=== PATIENT | male | born 1945 | race Caucasian/White ===

== ENCOUNTER → 2017-01-21 | Outpatient (CLI) | payer OTHER, MEDICARE ==
[~2017-01-21] MED LIST: ASPCH81X PO; CINNAMON 500MG PO; LISI-725 PO; METF500T PO; OMEG10007 PO; OMEP20CA59 PO
[2017-01-21 15:47] LABS: SYNOVIAL FLUID APPEARANCE TURBID; SYNOVIAL FLUID COLOR YELLOW; SYNOVIAL FLUID MONONUC RELAT 14.2 %; SYNOVIAL FLUID POLYNUC RELAT 85.8 %
[2017-01-24 02:39] LABS: LYME DNA PCR CSF OR SYNOVIAL Detected (Not Detected); LYME DNA SOURCE Synovial Fluid
== END | disposition home or self-care (01) ==
LOC: C.LABBC 11:54
PROVIDERS: ATTEND Orthopaedic Surgery
DX: M25.462 Effusion, left knee (principal)

== ENCOUNTER 2019-05-03 20:33 | Inpatient (IN) ==
--- NOTE | 2019-05-03 21:44 | XRay Report ---
SINGLE VIEW CHEST CLINICAL HISTORY: Sepsis. FINDINGS: An AP, portable, upright chest radiograph is obtained. No prior studies are available for c omparison at the time of dictation. The examination is degraded by portable technique and patient rot ation. The heart is top normal for projection. The mediastinal contour is within normal limits. Ther e is mild elevation of the left hemidiaphragm with associated atelectasis. No airspace consolidation or large pleural effusion is identified. No pneumothorax is seen. The skeletal structures are osteope monet. The bony thorax is grossly intact. Thoracic scoliosis is noted. IMPRESSION: No acute cardiopulmonary abnormality. Electronically signed by: Yomi Tyson M.D. 05/03/2019 9:43 PM
[2019-05-03 22:01] LABS: Basophils # (auto) 0.01 K/uL (0-0.2); Basophils % (auto) 0.1 %; Hematocrit (blood only) 38.9 % (42-52); Hemoglobin 13.4 g/dL (14.0-18.0); Immature Granulocytes # (auto) 0.02 K/uL (0.00-0.02); Immature Granulocytes % (auto) 0.2 %; Lymphocytes # (auto) 0.69 K/uL (1.2-3.4); Lymphocytes % (auto) 7.9 %; Mean Corpuscular Hgb Conc 34.4 g/dL (32-36); Mean Corpuscular Volume 87.8 fL (80-100); Mean Platelet Volume 9.6 fL (7.4-10.4); Monocytes % (auto) 3.4 %; Neutrophils # (auto) 7.68 K/uL (1.4-6.5); Neutrophils % (auto) 88.4 %; Platelet Count 144 K/uL (130-400); RDW Coefficient of Variation 13.3 % (11.5-14.5); RDW Standard Deviation 43.2 fL (36.4-46.3); Red Blood Count 4.43 M/uL (4.7-6.1)
[2019-05-03 22:11] LABS: Partial Thromboplastin Ratio 1.5; Partial Thromboplastin Time 41.7 Seconds (21.0-31.0); Prothrombin Time 10.7 Seconds (9.0-12.0)
[2019-05-03 22:17] LABS: Albumin Level 3.9 gm/dl (3.4-5.0); BUN Creatinine Ratio 11.8 (10-20); Est GFR (Non-African American) 47.4; Potassium 3.8 mmol/L (3.5-5.1)
[2019-05-03 22:20] LABS: Bilirubin,Total 1.2 mg/dl (0.2-1); Globulin 3.7 gm/dl (2.5-4.0); Total Protein 7.6 gm/dl (6.4-8.2)
[2019-05-03] MEDS ORDERED: IOVERSOL 100ml IV PRN (22:50)
--- NOTE | 2019-05-03 22:52 | CT Scan Report ---
CT SCAN OF THE BRAIN WITHOUT IV CONTRAST CLINICAL HISTORY: Change in mental status. COMPARISON STUDY: CT of the brain dated 02/23/2014. TECHNIQUE: Unenhanced axial CT scan of the brain is performed from the vertex to the skull base. A do se lowering technique was utilized adhering to the principles of ALARA. CT DOSE: 614.27 mGy.cm FINDINGS: Brain parenchyma: There are age-related involutional changes noting mild subcortical and periventric ular microangiopathic change. There is no hemorrhage, mass effect, or evidence of acute territorial i schemia by CT criteria. Gomes-white matter differentiation is preserved. No extra-axial fluid collecti on is seen. Ventricles, sulci, cisterns: Prominent secondary to involutional change. Intracranial vasculature: There is atherosclerotic calcification of the cavernous carotid and vertebr al arteries. Calvarium: Unremarkable. Sinuses and mastoids: The visualized paranasal sinuses are clear. The mastoid air cells are well pneu matized. Orbits: The bony orbits are grossly intact. IMPRESSION: There is no hemorrhage, mass effect, or evidence of acute territorial ischemia by CT faiza bey. Electronically signed by: Yomi Tyson M.D. 05/03/2019 10:50 PM
[2019-05-03 23:01] LABS: Appearance Urine Clear (Clear); Bacteria Urine Automated Negative (Negative); Bilirubin Urine Negative (Negative); Blood Urine Negative (Negative); Color Urine Yellow; Epithelial Cell Urine Auto >30 /lpf (0-5); Glucose Urine UA Negative (Negative); Ketones Urine 1+ (Negative); Leukocyte Esterase Urine Negative (Negative); Nitrite Urine Negative (Negative); Protein Urine Trace (Negative); RBC Urine Automated 0-4 /hpf (0-4); Specific Gravity Urine 1.022 (1.000-1.030); Urobilinogen Urine Negative (Negative)
--- NOTE | 2019-05-03 23:02 | CT Scan Report ---
CT SCAN OF THE ABDOMEN AND PELVIS WITH IV CONTRAST CLINICAL HISTORY: Nausea. Fever. COMPARISON STUDY: No priors. TECHNIQUE: Following the IV administration of 94 cc of Optiray 320, CT scan of the abdomen and pelvi s is performed from the lung bases to the proximal femora. Images are reviewed in the axial, sagittal , and coronal planes. IV contrast was administered without complication. A dose lowering technique wa s utilized adhering to the principles of ALARA. CT DOSE: 656.48 mGy.cm FINDINGS: Lung bases: The heart is normal in size and without pericardial effusion. There are coronary artery c alcifications. The lung bases are clear. There is a small hiatal hernia. Liver: The contrast-enhanced liver is normal in size, contour, and attenuation. There is no intrahepa tic biliary ductal dilatation. The hepatic veins and portal veins are patent. Gallbladder: Unremarkable. Spleen: Normal in size and attenuation. Pancreas: Unremarkable. Adrenal glands: Unremarkable. Kidneys: The contrast enhanced kidneys demonstrate cortical atrophy and are without hydronephrosis. T he kidneys enhance symmetrically. A 4.4 cm cyst is noted in the left kidney. There are tiny nonobstru cting left renal calculi. Abdominal vasculature: The abdominal aorta is normal in course and caliber noting moderate atheroscle rotic calcification. Bowel: There is mild colonic diverticulosis. There is a long segment of wall thickening identified in volving the cecum and ascending colon. There is associated pericolonic stranding and fluid. Mild wall thickening of the terminal ileum is likely related to inflammation of the adjacent cecum. There is n o bowel obstruction. The appendix is not clearly identified. Peritoneum: There is no intraperitoneal free air or abdominal ascites. There is a fat-containing umbi lical hernia. Lymphadenopathy: None. Pelvic viscera: The the prostate gland is enlarged and heterogeneous, noting median lobe hypertrophy. The bladder is decompressed. The bladder wall appears thickened and trabeculated suggesting chronic outlet obstruction. Skeletal structures: The skeletal structures are osteopenic. There is mild to moderate lumbosacral sp ondylosis and scoliosis. No lytic or blastic lesions are seen. IMPRESSION: 1. There is a long segment of wall thickening and edema identified involving the cecum and ascending colon. There is associated pericolonic inflammation and fluid. Although there are scattered diverticu la of the right colon, ileocecitis/right-sided colitis is favored over acute diverticulitis due to th e length of involvement. The appendix is not identified. The appearance is not typical for appendicit is. 2. No intraperitoneal free air is seen and there is no organized fluid collection to indicate abscess . 3. There is mild diverticulosis of left colon. The left colon is otherwise normal in appearance. 4. Additional findings as above. Electronically signed by: Yomi Tyson M.D. 05/03/2019 11:00 PM
[2019-05-03] MEDS ORDERED: metroNIDAZOLE 500 MG/100 ML BAG IV STA (23:07)
[2019-05-03] MEDS ORDERED: CIPROFLOXACIN 400 MG/200 ML BAG IV ONE (23:08)
[2019-05-03] MEDS ORDERED: LACTATED RINGER'S 1,000 ML IV ONE (23:24)
[2019-05-03 23:35] LABS: Magnesium 1.6 mg/dl (1.8-2.4)
--- NOTE | 2019-05-03 23:49 | History & Physical Report ---
Date of Service May 03, 2019 Assessment & Plan (1) Sepsis: Secondary to right-sided colitis Hypertension, slightly elevated Hyperlipidemia statin Rx DM2 on her medications, well-controlled as of recent outpatient hemoglobin A1c of 6.2 last March 2019 CRI, creatinine at baseline GMF Cultures IV Ceftriaxone, Flagyl IVF GI consult RE right-sided colitis ISS BG goal 1 40-1 80, may need basal insulin to attain goal DVT prophylaxis heparin subcu Full code History of Present Illness Chief Complaint: Dizziness Primary Care Provider: Namrata Rolon History obtained from patient and records. Medical history significant for hypertension, hyperlipidemia, DM 2 on oral medications, CRI baseline creatinine 1.4-1.5. Patient was working on his car yesterday when he felt dizzy, felt lightheaded. 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 At home, patient was still hot and nauseous. Patient denies chest pain, cough, S OB, abdominal pain, diarrhea, dysuria. At the ER, patient noted to be febrile. Abdomen was noted to be somewhat tender by ER provider. CT abdomen pelvis results as follows: 1. There is a long segment of wall thickening and edema identified involving the cecum and ascending colon. There is associated pericolonic inflammation and fluid. Although there are scattered diverticula of the right colon, ileocec itis/right-sided colitis is favored over acute diverticulitis due to the length of involvement. The appendix is not identified. The appearance is not typical for appendicitis. 2. No intraperitoneal free air is seen and there is no organized fluid collection to indicate abscess. 3. There is mild diverticulosis of left colon. The left colon is otherwise normal in appearance. IV Cipro and Flagyl given at the ER. 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 Allergies Allergy/AdvReac Type Severity Reaction Status Date / Time aluminum Allergy Unknown Unknown Verified 05/03/19 21:59 Home Medications Home Medications Medication Instructions Recorded Confirmed Type cinnamon bark [Cinnamon] 500 mg PO BID 05/03/19 05/03/19 History lisinopril 20 mg PO DAILY 05/03/19 05/03/19 History metformin 500 mg PO BID 05/03/19 05/03/19 History omeprazole 20 mg PO BID 05/03/19 05/03/19 History Past Med/Surg History Medical History No pertinent past medical history Surgical History No pertinent past surgical history Family History Other Family history non-contributory Social History Preferred Language: Guyanese Communication Ability: Effective 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 Current Living Situation: Spouse Other Information That Helps Us Care for You: No Feels Safe at Home: Yes Safety Concerns: Feels Safe At This Time Smoking Status: Never smoker Hx Alcohol Use: Yes Hx Substance Use: No Review of Systems Review of Systems: As per HPI, all 10 systems reviewed, all other ROS negative Physical Exam Physical Exam: GENERAL: Comfortable, pleasant, obese, no respiratory distress SKIN: Normal color, warm HEENT: Sparse hair, pink palpebral conjunctivae, no ptosis, dry buccal mucosa NECK : Supple, short, no tenderness CHEST : CTA, no tenderness HEART : RRR, no obvious murmurs ABDOMEN: Some distention, minimal central abdominal tenderness r EXTREMITIES : No LE swelling/tenderness, no other conspicuous deformities noted NEUROLOGIC : Coherent, no facial asymmetry, no other gross focality Results & Data Vital Signs (Past 12 Hours) Vital Signs Temp Pulse Pulse Resp BP BP Pulse Ox 05/03/19 21:46 100 H 16 143/93 H 97 05/03/19 21:11 37.3 C 05/03/19 20:36 39.3 C H 115 H 18 160/84 H 96 Laboratory Results Laboratory Results WBC 8.70 K/uL (4.8-10.8) 05/03/19 21:47 RBC 4.43 M/uL (4.7-6.1) L 05/03/19 21:47 Hgb 13.4 g/dL (14.0-18.0) L 05/03/19 21:47 Hct 38.9 % (42-52) L 05/03/19 21:47 MCV 87.8 fL (80-100) 05/03/19 21:47 MCH 30.2 pg (25-34) 05/03/19 21:47 MCHC 34.4 g/dL (32-36) 05/03/19 21:47 RDW Std Deviation 43.2 fL (36.4-46.3) 05/03/19 21:47 RDW Coeff of Dayanna 13.3 % (11.5-14.5) 05/03/19 21:47 Plt Count 144 K/uL (130-400) 05/03/19 21:47 MPV 9.6 fL (7.4-10.4) 05/03/19 21:47 Immature Gran % (Auto) 0.2 % 05/03/19 21:47 Neut % (Auto) 88.4 % 05/03/19 21:47 Lymph % (Auto) 7.9 % 05/03/19 21:47 [place] % (Auto) 3.4 % 05/03/19 21:47 Eos % (Auto) 0.0 % 05/03/19 21:47 Baso % (Auto) 0.1 % 05/03/19 21:47 Immature Gran # (Auto) 0.02 K/uL (0.00-0.02) 05/03/19 21:47 Neut # (Auto) 7.68 K/uL (1.4-6.5) H 05/03/19 21:47 Lymph # (Auto) 0.69 K/uL (1.2-3.4) L 05/03/19 21:47 [place] # (Auto) 0.30 K/uL (0.11-0.59) 05/03/19 21:47 Eos # (Auto) 0.00 K/uL (0-0.5) 05/03/19 21:47 Baso # (Auto) 0.01 K/uL (0-0.2) 05/03/19 21:47 PT 10.7 Seconds (9.0-12.0) 05/03/19 21:47 INR 1.0 (0.9-1.1) 05/03/19 21:47 APTT 41.7 Seconds (21.0-31.0) H 05/03/19 21:47 PTT Ratio 1.5 05/03/19 21:47 Sodium 135 mmol/L (136-145) L 05/03/19 21:47 Potassium 3.8 mmol/L (3.5-5.1) 05/03/19 21:47 Chloride 103 mmol/L (98-107) 05/03/19 21:47 Carbon Dioxide 22 mmol/L (21-32) 05/03/19 21:47 Anion Gap 9.0 (3-11) 05/03/19 21:47 BUN 17 mg/dl (7-18) 05/03/19 21:47 Creatinine 1.45 mg/dl (0.6-1.4) H 05/03/19 21:47 Est Cr Clr Drug Dosing 46.0 ml/min 05/03/19 21:47 Est GFR ( Amer) 55.0 05/03/19 21:47 Est GFR (Non-Af Amer) 47.4 05/03/19 21:47 BUN/Creatinine Ratio 11.8 (10-20) 05/03/19 21:47 Glucose 115 mg/dl (70-99) H 05/03/19 21:47 Lactate 1.3 mmol/L (0.4-2.0) 05/03/19 21:47 Calcium 9.0 mg/dl (8.5-10.1) 05/03/19 21:47 Magnesium 1.6 mg/dl (1.8-2.4) L 05/03/19 21:47 Total Bilirubin 1.2 mg/dl (0.2-1) H 05/03/19 21:47 AST 17 U/L (15-37) 05/03/19 21:47 ALT 19 U/L (12-78) 05/03/19 21:47 Alkaline Phosphatase 71 U/L (45-117) 05/03/19 21:47 Total Protein 7.6 gm/dl (6.4-8.2) 05/03/19 21:47 Albumin 3.9 gm/dl (3.4-5.0) 05/03/19 21:47 Globulin 3.7 gm/dl (2.5-4.0) 05/03/19 21:47 Albumin/Globulin Ratio 1.0 (0.9-2) 05/03/19 21:47 Urine Color Yellow 05/03/19 Unknown Urine Appearance Clear (Clear) 05/03/19 Unknown Urine pH 6.0 (4.5-7.5) 05/03/19 Unknown Ur Specific [place] 1.022 (1.000-1.030) 05/03/19 Unknown Urine Protein Trace (Negative) H 05/03/19 Unknown Urine Glucose (UA) Negative (Negative) 05/03/19 Unknown Urine Ketones 1+ (Negative) H 05/03/19 Unknown Urine Blood Negative (Negative) 05/03/19 Unknown Urine Nitrite Negative (Negative) 05/03/19 Unknown Urine Bilirubin Negative (Negative) 05/03/19 Unknown Urine Urobilinogen Negative (Negative) 05/03/19 Unknown Ur Leukocyte Esterase Negative (Negative) 05/03/19 Unknown Urine WBC (Auto) 1-5 /hpf (0-5) 05/03/19 Unknown Urine RBC (Auto) 0-4 /hpf (0-4) 05/03/19 Unknown U Hyaline Cast (Auto) 1-5 /lpf (0-5) 05/03/19 Unknown U Epithel Cells (Auto) >30 /lpf (0-5) H 05/03/19 Unknown Urine Bacteria (Auto) Negative (Negative) 05/03/[address] abdomen pelvis results as per HPI CT head: There is no hemorrhage, mass effect, or evidence of acute territorial ischemia by CT criteria. Chest x-ray: No acute cardiopulmonary abnormality.
[2019-05-04] MEDS ORDERED: GLUCOSE 40% GEL 15 GM TUBE PO PRN (01:34)
[2019-05-04] MEDS ORDERED: DEXTROSE 50% 50 ML SYRINGE IV PRN (01:34)
[2019-05-04] MEDS ORDERED: HYDROmorphone INJ 0.5 MG/0.5 ML SYR IV PRN (01:34)
[2019-05-04] MEDS ORDERED: PROMETHAZINE HCL 12.5 MG in SODIUM CHLORIDE 0.9% 50 ML IV PRN (01:34)
[2019-05-04] MEDS ORDERED: GLUCAGON FOR INJ 1 MG VIAL SQ PRN (01:34)
[2019-05-04] MEDS ORDERED: TRAMADOL HCL 50 MG TABLET PO PRN (01:34)
[2019-05-04] MEDS ORDERED: GLUCOSE 10 TABS/TUBE PO PRN (01:34)
[2019-05-04] MEDS ORDERED: CARBOHYDRATES FOR HYPOGLYCEMIA PO PRN (01:34)
[2019-05-04] MEDS ORDERED: ACETAMINOPHEN 325 MG TAB PO PRN (01:34)
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
[2019-05-04] MEDS: INSULIN ASPART 100 UNITS/ML 3 ML PEN SC SCH ×5 (01:43→20:34)
[2019-05-04] MEDS ORDERED: MAGNESIUM SULFATE / D5W 1 GM/100 ML BAG IV ONE (02:43)
[2019-05-04] MEDS: HEPARIN SOD 5,000 UNIT/0.5 ML VIAL SQ SCH ×3 (05:48→21:55)
[2019-05-04 06:57] LABS: Basophils # (auto) 0.02 K/uL (0-0.2); Basophils % (auto) 0.3 %; Eosinophils # (auto) 0.01 K/uL (0-0.5); Eosinophils % (auto) 0.1 %; Hemoglobin 12.8 g/dL (14.0-18.0); Immature Granulocytes # (auto) 0.02 K/uL (0.00-0.02); Immature Granulocytes % (auto) 0.3 %; Lymphocytes # (auto) 1.27 K/uL (1.2-3.4); Lymphocytes % (auto) 17.9 %; Mean Corpuscular Hgb Conc 34.6 g/dL (32-36); Mean Corpuscular Volume 87.3 fL (80-100); Mean Platelet Volume 9.8 fL (7.4-10.4); Monocytes % (auto) 4.2 %; Neutrophils # (auto) 5.49 K/uL (1.4-6.5); Neutrophils % (auto) 77.2 %; Platelet Count 139 K/uL (130-400); RDW Coefficient of Variation 13.5 % (11.5-14.5); RDW Standard Deviation 43.1 fL (36.4-46.3); Red Blood Count 4.24 M/uL (4.7-6.1); White Blood Count 7.11 K/uL (4.8-10.8)
[2019-05-04 07:27] LABS: BUN Creatinine Ratio 11.3 (10-20); Calcium 8.5 mg/dl (8.5-10.1); Creatinine Clr Calc Pharmacy 48.5 ml/min; Est GFR (African American) 56.9; Est GFR (Non-African American) 49.1; Magnesium 1.9 mg/dl (1.8-2.4); Potassium 3.6 mmol/L (3.5-5.1)
[2019-05-04] MEDS: LISINOPRIL 20 MG TAB PO SCH (07:44)
[2019-05-04] MEDS: cefTRIAXone SODIUM 2,000 MG in DEXTROSE 5% 50 ML IV SCH (07:44)
[2019-05-04] MEDS: PANTOprazole 40 MG TAB PO SCH ×2 (07:45→20:25)
[2019-05-04] MEDS: metroNIDAZOLE 500 MG/100 ML BAG IV SCH ×3 (08:23→23:50)
[2019-05-04] MEDS ORDERED: cefTRIAXone SODIUM 1,000 MG in DEXTROSE 5% 50 ML IV SCH (09:00)
--- NOTE | 2019-05-04 09:24 | Gastrointestinal Consultation ---
Date of Consultation May 04, 2019 Assessment & Plan (1) Abnormal CT of the abdomen: 73 year old male who presented through the ED with nausea, lightheadedness, dehydration, CT w/ long segment of wall thickening and edema identified involving the cecum and ascending colon. He denies abdominal pain, nausea, vomiting or change in bowel habits. Would continue conservative management at this time. Would recommend to send a stool culture and a c.diff. Would continue IV fluids for hydration. Continue IV Cipro/Flagyl for now. Anti-emetics PRN. Analgesia PRN. Would recommend he keep outpatient colonoscopy as scheduled for 05/25/19. Present on Admission?: Yes Supervising Physician Co-Signing Physician Notes I have personally seen and examined the patient with HORACE Duggan. Her note reflects my exam and findings. I agree with her impression and plan. Feeling well today and wanting to go home. Agree with out patient colonoscopy. Luis A Calderon M.D. History of Present Illness Reason for Consultation: abnormal CT of abd, ileitis Requesting Physician: Mathieu Attending Physician: Octavio Murdock MD History of Present Illness 73 year old male with history of T2DM, dyslipidemia, HTN, Raynauds, GERD and others below who presented to the ED w/ nausea, lightheadedness and dehydration - GI asked to evaluate for thickening on CT scan. Pt was seen and evaluated, chart reviewed. He notes that overall he is feeling well w/ fluids. Denies abdominal pain. No nausea, vomiting. Bowels move daily. No black or bloody stools. No history of chronic diarrhea. Denies fever, chills, CP, SOB. He is planned for an OP Colonoscopy 05/25/[address] CA screening[address] CT ABD/Pelvis: There is a long segment of wall thickening and edema identified involving the cecum and ascending colon. There is associated pericolonic inflammation and fluid. Although there are scattered diverticula of the right colon, ileocecitis/right-sided colitis is favored over acute diverticulitis due to the length of involvement. The appendix is not identified. The appearance is not typical for appendicitis. No intraperitoneal free air is seen and there is no organized fluid collection to indicate abscess.There is mild diverticulosis of left colon. The left colon is otherwise normal in appearance. Additional findings as above. Allergies Allergy/AdvReac Type Severity Reaction Status Date / Time aluminum Allergy Unknown Unknown Verified 05/03/19 21:59 Home Medications Home Medications Medication Instructions Recorded Confirmed Type cinnamon bark [Cinnamon] 500 mg PO BID 05/03/19 05/03/19 History lisinopril 20 mg PO DAILY 05/03/19 05/03/19 History metformin 500 mg PO BID 05/03/19 05/03/19 History omeprazole 20 mg PO BID 05/03/19 05/03/19 History Patient History Medical History No pertinent past medical history Surgical History No pertinent past surgical history Family History Other Family history non-contributory Social History Preferred Language: Mongolian Communication Ability: Effective Tobacco Wrapping Machine Tender Required: No Current Living Situation: Spouse Other Information That Helps Us Care for You: No Feels Safe at Home: Yes Safety Concerns: Feels Safe At This Time Smoking Status: Never smoker Hx Alcohol Use: Yes Hx Substance Use: No Review of Systems Constitutional: no fever, no chills and no fatigue Respiratory: no cough, no chest congestion and no dyspnea Cardiovascular: no chest pain, no radiating jaw, neck or arm pain, no dyspnea and no orthopnea Gastrointestinal: no abdominal pain, no belching, no heartburn, no vomiting, no coffee ground emesis, no hematemesis and no change in stools Physical Exam Constitutional: WD/WN, vitals as above no acute distress and not ill appearing Neck: trachea midline, no thyromegaly Respiratory: normal respiratory effort, lungs clear to auscultation Gastrointestinal (Abdomen): normal bowel sounds, soft, nontender, no hepatosplenomegaly Skin: no rashes, warm and dry Psychiatric: Orientation: alert and oriented x 3 Results & Data Vital Signs (Past 12 Hours) Vital Signs Temp Pulse Pulse Pulse Resp BP BP 05/04/19 01:16 37.5 C 86 20 123/73 05/04/19 00:48 37.7 C H 84 20 141/89 H 05/04/19 00:41 37.7 C H 84 20 141/89 H 05/04/19 00:30 84 18 141/89 H 05/03/19 21:46 100 H 16 143/93 H Pulse Ox 05/04/19 01:16 96 05/04/19 00:48 95 05/04/19 00:41 95 05/04/19 00:30 95 05/03/19 21:46 97 Laboratory Results 05/04/19 05/04/19 05/04/19 Range/Units 07:44 06:12 06:12 WBC 7.11 (4.8-10.8) K/uL RBC 4.24 L (4.7-6.1) M/uL Hgb 12.8 L (14.0-18.0) g/dL Hct 37.0 L (42-52) % MCV 87.3 (80-100) fL MCH 30.2 (25-34) pg MCHC 34.6 (32-36) g/dL RDW Std Deviation 43.1 (36.4-46.3) fL RDW Coeff of [place] 13.5 (11.5-14.5) % Plt Count 139 (130-400) K/uL MPV 9.8 (7.4-10.4) fL Immature Gran % (Auto) 0.3 % Neut % (Auto) 77.2 % Lymph % (Auto) 17.9 % [place] % (Auto) 4.2 % Eos % (Auto) 0.1 % Baso % (Auto) 0.3 % Immature Gran # (Auto) 0.02 (0.00-0.02) K/uL Neut # (Auto) 5.49 (1.4-6.5) K/uL Lymph # (Auto) 1.27 (1.2-3.4) K/uL [place] # (Auto) 0.30 (0.11-0.59) K/uL Eos # (Auto) 0.01 (0-0.5) K/uL Baso # (Auto) 0.02 (0-0.2) K/uL PT (9.0-12.0) Seconds INR (0.9-1.1) APTT (21.0-31.0) Seconds PTT Ratio Sodium 133 L (136-145) mmol/L Potassium 3.6 (3.5-5.1) mmol/L Chloride 103 (98-107) mmol/L Carbon Dioxide 20 L (21-32) mmol/L Anion Gap 10.0 (3-11) BUN 16 (7-18) mg/dl Creatinine 1.41 H (0.6-1.4) mg/dl Est Cr Clr Drug Dosing 48.5 ml/min Est GFR ( Amer) 56.9 Est GFR (Non-Af Amer) 49.1 BUN/Creatinine Ratio 11.3 (10-20) Glucose 125 H (70-99) mg/dl POC Glucose 131 H (70-99) Lactate (0.4-2.0) mmol/L Calcium 8.5 (8.5-10.1) mg/dl Magnesium 1.9 (1.8-2.4) mg/dl Total Bilirubin (0.2-1) mg/dl AST (15-37) U/L ALT (12-78) U/L Alkaline Phosphatase (45-117) U/L Total Protein (6.4-8.2) gm/dl Albumin (3.4-5.0) gm/dl Globulin (2.5-4.0) gm/dl Albumin/Globulin Ratio (0.9-2) Urine Color Urine Appearance (Clear) Urine pH (4.5-7.5) Ur Specific [place] (1.000-1.030) Urine Protein (Negative) Urine Glucose (UA) (Negative) Urine Ketones (Negative) Urine Blood (Negative) Urine Nitrite (Negative) Urine Bilirubin (Negative) Urine Urobilinogen (Negative) Ur Leukocyte Esterase (Negative) Urine WBC (Auto) (0-5) /hpf Urine RBC (Auto) (0-4) /hpf U Hyaline Cast (Auto) (0-5) /lpf U Epithel Cells (Auto) (0-5) /lpf Urine Bacteria (Auto) (Negative) 05/04/19 05/03/19 05/03/19 Range/Units 01:42 Unknown 21:47 WBC (4.8-10.8) K/uL RBC (4.7-6.1) M/uL Hgb (14.0-18.0) g/dL Hct (42-52) % MCV (80-100) fL MCH (25-34) pg MCHC (32-36) g/dL RDW Std Deviation (36.4-46.3) fL RDW Coeff of Dayanna (11.5-14.5) % Plt Count (130-400) K/uL MPV (7.4-10.4) fL Immature Gran % (Auto) % Neut % (Auto) % Lymph % (Auto) % [place] % (Auto) % Eos % (Auto) % Baso % (Auto) % Immature Gran # (Auto) (0.00-0.02) K/uL Neut # (Auto) (1.4-6.5) K/uL Lymph # (Auto) (1.2-3.4) K/uL [place] # (Auto) (0.11-0.59) K/uL Eos # (Auto) (0-0.5) K/uL Baso # (Auto) (0-0.2) K/uL PT (9.0-12.0) Seconds INR (0.9-1.1) APTT (21.0-31.0) Seconds PTT Ratio Sodium (136-145) mmol/L Potassium (3.5-5.1) mmol/L Chloride (98-107) mmol/L Carbon Dioxide (21-32) mmol/L Anion Gap (3-11) BUN (7-18) mg/dl Creatinine (0.6-1.4) mg/dl Est Cr Clr Drug Dosing ml/min Est GFR ( Amer) Est GFR (Non-Af Amer) BUN/Creatinine Ratio (10-20) Glucose (70-99) mg/dl POC Glucose 121 H (70-99) Lactate 1.3 (0.4-2.0) mmol/L Calcium (8.5-10.1) mg/dl Magnesium (1.8-2.4) mg/dl Total Bilirubin (0.2-1) mg/dl AST (15-37) U/L ALT (12-78) U/L Alkaline Phosphatase (45-117) U/L Total Protein (6.4-8.2) gm/dl Albumin (3.4-5.0) gm/dl Globulin (2.5-4.0) gm/dl Albumin/Globulin Ratio (0.9-2) Urine Color Yellow Urine Appearance Clear (Clear) Urine pH 6.0 (4.5-7.5) Ur Specific [place] 1.022 (1.000-1.030) Urine Protein Trace H (Negative) Urine Glucose (UA) Negative (Negative) Urine Ketones 1+ H (Negative) Urine Blood Negative (Negative) Urine Nitrite Negative (Negative) Urine Bilirubin Negative (Negative) Urine Urobilinogen Negative (Negative) Ur Leukocyte Esterase Negative (Negative) Urine WBC (Auto) 1-5 (0-5) /hpf Urine RBC (Auto) 0-4 (0-4) /hpf U Hyaline Cast (Auto) 1-5 (0-5) /lpf U Epithel Cells (Auto) >30 H (0-5) /lpf Urine Bacteria (Auto) Negative (Negative) 05/03/19 05/03/19 05/03/19 Range/Units 21:47 21:47 21:47 WBC 8.70 (4.8-10.8) K/uL RBC 4.43 L (4.7-6.1) M/uL Hgb 13.4 L (14.0-18.0) g/dL Hct 38.9 L (42-52) % MCV 87.8 (80-100) fL MCH 30.2 (25-34) pg MCHC 34.4 (32-36) g/dL RDW Std Deviation 43.2 (36.4-46.3) fL RDW Coeff of Dayanna 13.3 (11.5-14.5) % Plt Count 144 (130-400) K/uL MPV 9.6 (7.4-10.4) fL Immature Gran % (Auto) 0.2 % Neut % (Auto) 88.4 % Lymph % (Auto) 7.9 % [place] % (Auto) 3.4 % Eos % (Auto) 0.0 % Baso % (Auto) 0.1 % Immature Gran # (Auto) 0.02 (0.00-0.02) K/uL Neut # (Auto) 7.68 H (1.4-6.5) K/uL Lymph # (Auto) 0.69 L (1.2-3.4) K/uL [place] # (Auto) 0.30 (0.11-0.59) K/uL Eos # (Auto) 0.00 (0-0.5) K/uL Baso # (Auto) 0.01 (0-0.2) K/uL PT 10.7 (9.0-12.0) Seconds INR 1.0 (0.9-1.1) APTT 41.7 H (21.0-31.0) Seconds PTT Ratio 1.5 Sodium 135 L (136-145) mmol/L Potassium 3.8 (3.5-5.1) mmol/L Chloride 103 (98-107) mmol/L Carbon Dioxide 22 (21-32) mmol/L Anion Gap 9.0 (3-11) BUN 17 (7-18) mg/dl Creatinine 1.45 H (0.6-1.4) mg/dl Est Cr Clr Drug Dosing 46.0 ml/min Est GFR ( Amer) 55.0 Est GFR (Non-Af Amer) 47.4 BUN/Creatinine Ratio 11.8 (10-20) Glucose 115 H (70-99) mg/dl POC Glucose (70-99) Lactate (0.4-2.0) mmol/L Calcium 9.0 (8.5-10.1) mg/dl Magnesium 1.6 L (1.8-2.4) mg/dl Total Bilirubin 1.2 H (0.2-1) mg/dl AST 17 (15-37) U/L ALT 19 (12-78) U/L Alkaline Phosphatase 71 (45-117) U/L Total Protein 7.6 (6.4-8.2) gm/dl Albumin 3.9 (3.4-5.0) gm/dl Globulin 3.7 (2.5-4.0) gm/dl Albumin/Globulin Ratio 1.0 (0.9-2) Urine Color Urine Appearance (Clear) Urine pH (4.5-7.5) Ur Specific [place] (1.000-1.030) Urine Protein (Negative) Urine Glucose (UA) (Negative) Urine Ketones (Negative) Urine Blood (Negative) Urine Nitrite (Negative) Urine Bilirubin (Negative) Urine Urobilinogen (Negative) Ur Leukocyte Esterase (Negative) Urine WBC (Auto) (0-5) /hpf Urine RBC (Auto) (0-4) /hpf U Hyaline Cast (Auto) (0-5) /lpf U Epithel Cells (Auto) (0-5) /lpf Urine Bacteria (Auto) (Negative)
--- NOTE | 2019-05-04 13:25 | Hospitalist Progress Note ---
Date of Service May 04, 2019 Assessment & Plan (1) Sepsis: Abnormal CT Abdomen CT abd suggestive of wall thickening, edema involving the cecum and ascending colon; associated pericolonic infiltration and fluid suggestive of right colon, ileocecitis/right sided colitis Patient denies any abdominal pain, vomiting States having diarrhea today Blood Cx:pending Continue Lance Taylor GI input Received IV fluids Advance diet as tolerated Plan for outpatient colonoscopy Check stool studies to rule out C. difficile Hypertension BP Stable Continue lisinopril Monitor Hyperlipidemia No on statin at home DM II: Last A1c:6.2 in March 2019 Hold oral meds Continue insulin therapy while hospitalized CKD III creatinine at baseline Monitor renal function Avoid nephrotoxic agents as able Dehydration: Received IV Fluids DVT Px: Heparin SQ Code Status Full code Disposition: Expect to discharge home when stable Subjective Patient is seen and examined at bedside States feeling much better today Reports having loose bowel movements Denies any chest pain, shortness of breath, dizziness, abdominal pain Dizziness, nausea resolved Office no other complaints Review of Systems Review of Systems: All systems reviewed & are unremarkable except as noted in HPI & below Physical Exam Physical Exam: Physical Exam: Vitals signs as noted above General Appearance:Moderately built and nourished, no apparent distress Head: normocephalic, Atraumatic Eyes: normal inspection, EOMI Neck: supple, Trachea midline Respiratory/Chest: Normal breath sounds, CTA Cardiovascular: S1, S2, No murmur Abdomen/GI:Soft, Non tender, Bowel sounds present Extremities/Musculoskelatal:normal inspection, no edema Neurologic/Psych:AAOX3, grossly no focal neurological deficits Skin: normal color, warm Results & Data Laboratory Results Short CBC 05/03/19 05/04/19 Range/Units 21:47 06:12 WBC 8.70 7.11 (4.8-10.8) K/uL Hgb 13.4 L 12.8 L (14.0-18.0) g/dL Hct 38.9 L 37.0 L (42-52) % Plt Count 144 139 (130-400) K/uL BMP 05/03/19 05/04/19 21:47 06:12 Sodium 135 L 133 L Potassium 3.8 3.6 Chloride 103 103 Carbon Dioxide 22 20 L BUN 17 16 Creatinine 1.45 H 1.41 H Glucose 115 H 125 H Calcium 9.0 8.5 Liver Function 05/03/19 Range/Units 21:47 Total Bilirubin 1.2 H (0.2-1) mg/dl AST 17 (15-37) U/L ALT 19 (12-78) U/L Alkaline Phosphatase 71 (45-117) U/L Albumin 3.9 (3.4-5.0) gm/dl Urine 05/03/19 Range/Units Unknown Urine Color Yellow Urine Appearance Clear (Clear) Urine pH 6.0 (4.5-7.5) Ur Specific [place] 1.022 (1.000-1.030) Urine Protein Trace H (Negative) Urine Glucose (UA) Negative (Negative) Diagnostic Findings CT ABD: 1. There is a long segment of wall thickening and edema identified involving the cecum and ascending colon. There is associated pericolonic inflammation and fluid. Although there are scattered diverticula of the right colon, ileocecitis/right-sided colitis is favored over acute diverticulitis due to the length of involvement. The appendix is not identified. The appearance is not typical for appendicitis. 2. No intraperitoneal free air is seen and there is no organized fluid collection to indicate abscess. 3. There is mild diverticulosis of left colon. The left colon is otherwise normal in appearance. 4. Additional findings as above.
[2019-05-04] MEDS: LACTOBACILLUS ACIDOPHILUS (FLORANEX) TAB PO SCH (20:25)
[2019-05-05] MEDS: HEPARIN SOD 5,000 UNIT/0.5 ML VIAL SQ SCH (06:24)
[2019-05-05 07:39] LABS: BUN Creatinine Ratio 12.1 (10-20); Creatinine Clr Calc Pharmacy 49.2 ml/min; Est GFR (African American) 57.9; Est GFR (Non-African American) 49.9; Magnesium 2.2 mg/dl (1.8-2.4); Potassium 3.8 mmol/L (3.5-5.1)
[2019-05-05] MEDS: cefTRIAXone SODIUM 2,000 MG in DEXTROSE 5% 50 ML IV SCH (07:54)
[2019-05-05] MEDS: LISINOPRIL 20 MG TAB PO SCH (07:55)
[2019-05-05] MEDS: LACTOBACILLUS ACIDOPHILUS (FLORANEX) TAB PO SCH ×2 (07:55→12:11)
[2019-05-05] MEDS: INSULIN ASPART 100 UNITS/ML 3 ML PEN SC SCH ×2 (08:28→12:50)
[2019-05-05] MEDS: metroNIDAZOLE 500 MG/100 ML BAG IV SCH (08:30)
[2019-05-05] MEDS: PANTOprazole 40 MG TAB PO SCH (08:36)
--- NOTE | 2019-05-05 12:52 | Hospitalist Progress Note ---
Date of Service May 05, 2019 Assessment & Plan (1) Sepsis: Abnormal CT Abdomen CT abd suggestive of wall thickening, edema involving the cecum and ascending colon; associated pericolonic infiltration and fluid suggestive of right colon, ileocecitis/right sided colitis Patient denies any abdominal pain, vomiting Diarrhea started after being started on Abx...which is currently improving y Blood Cx:No growth to date Received Cipro, Flagyl for 2 days. Will discontinue as cultures are negative/per GI recommendations Appreciate GI input Received IV fluids Plan for outpatient colonoscopy scheduled in May with stool studies: Negative Hypertension BP Stable Continue lisinopril Monitor Hyperlipidemia No on statin at home DM II: Last A1c:6.2 in March 2019 Hold oral meds Continue insulin therapy while hospitalized CKD III creatinine at baseline Monitor renal function Avoid nephrotoxic agents as able Dehydration: Received IV Fluids DVT Px: Heparin SQ Code Status Full code Disposition: Expect to discharge home when stable Subjective Patient is seen and examined at bedside States diarrhea is improving. Last BM was overnight No new complaints Discussed with GI today Denies any chest pain, shortness of breath, dizziness, abdominal pain Dizziness, nausea resolved Review of Systems Review of Systems: All systems reviewed & are unremarkable except as noted in HPI & below Physical Exam Physical Exam: Physical Exam: Vitals signs as noted above General Appearance:Moderately built and nourished, no apparent distress Head: normocephalic, Atraumatic Eyes: normal inspection, EOMI Neck: supple, Trachea midline Respiratory/Chest: Normal breath sounds, CTA Cardiovascular: S1, S2, No murmur Abdomen/GI:Soft, Non tender, Bowel sounds present Extremities/Musculoskelatal:normal inspection, no edema Neurologic/Psych:AAOX3, grossly no focal neurological deficits Skin: normal color, warm Results & Data Vital Signs (Past 12 Hours) Vital Signs Temp Pulse Resp BP Pulse Ox 05/05/19 07:30 36.9 C 70 18 124/78 96 Laboratory Results BMP 05/05/19 06:31 Sodium 137 Potassium 3.8 Chloride 107 Carbon Dioxide 23 BUN 17 Creatinine 1.39 Glucose 94 Calcium 9.0
--- NOTE | 2019-05-05 12:56 | Discharge Summary ---
Date of Service May 05, 2019 Admission HPI Per Admitting Provider History obtained from patient and records. Medical history significant for hypertension, hyperlipidemia, DM 2 on oral medications, CRI baseline creatinine 1.4-1.5. Patient was working on his car yesterday when he felt dizzy, felt lightheaded. [place] clinical director his car which did not have air-conditioning. At home, patient was still hot and nauseous. Patient denies chest pain, cough, S OB, abdominal pain, diarrhea, dysuria. At the ER, patient noted to be febrile. Abdomen was noted to be somewhat tender by ER provider. CT abdomen pelvis results as follows: 1. There is a long segment of wall thickening and edema identified involving the cecum and ascending colon. There is associated pericolonic inflammation and fluid. Although there are scattered diverticula of the right colon, ileocecitis/right-sided colitis is favored over acute diverticulitis due to the length of involvement. The appendix is not identified. The appearance is not typical for appendicitis. 2. No intraperitoneal free air is seen and there is no organized fluid collection to indicate abscess. 3. There is mild diverticulosis of left colon. The left colon is otherwise normal in appearance. IV Cipro and Flagyl given at the ER. 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 Admission Exam Per Admitting Provider GENERAL: Comfortable, pleasant, obese, no respiratory distress SKIN: Normal color, warm HEENT: Sparse hair, pink palpebral conjunctivae, no ptosis, dry buccal mucosa NECK : Supple, short, no tenderness CHEST : CTA, no tenderness HEART : RRR, no obvious murmurs ABDOMEN: Some distention, minimal central abdominal tenderness r EXTREMITIES : No LE swelling/tenderness, no other conspicuous deformities noted NEUROLOGIC : Coherent, no facial asymmetry, no other gross focality Principal Diagnosis Discharge Information Discharge Diagnosis Dehydration Possible Colitis Discharge Goals Decrease discomfort,Improve disease control, Improve function Discharge Activity Limitations Resume your previous acti Discharge Data Allergies Allergy/AdvReac Type Severity Reaction Status Date / Time aluminum Allergy Unknown Unknown Verified 05/03/19 21:59 Consultations 05/03/19 23:08 ED Decision to Admit Stat 05/04/19 01:34 Consult Gastroenterology Routine Procedures Performed CT ABD: 1. There is a long segment of wall thickening and edema identified involving the cecum and ascending colon. There is associated pericolonic inflammation and fluid. Although there are scattered diverticula of the right colon, ileocecitis/ right-sided colitis is favored over acute diverticulitis due to the length of involvement. The appendix is not identified. The appearance is not typical for appendicitis. 2. No intraperitoneal free air is seen and there is no organized fluid collection to indicate abscess. 3. There is mild diverticulosis of left colon. The left colon is otherwise normal in appearance. 4. Additional findings as above. CT head: There is no hemorrhage, mass effect, or evidence of acute territorial ischemia by CT criteria. CXR: No acute cardiopulmonary abnormality. Ordered Studies 05/03/19 21:49 CT abd pelvis IV con only Stat 05/03/19 21:50 CT head/brain wo con Stat Hospital Course (1) Sepsis: Abnormal CT Abdomen CT abd suggestive of wall thickening, edema involving the cecum and ascending colon; associated pericolonic infiltration and fluid suggestive of right colon, ileocecitis/right sided colitis Patient denies any abdominal pain, vomiting Diarrhea started after being started on Abx...which is currently improving y Blood Cx:No growth to date Received Cipro, Flagyl for 2 days. Will discontinue as cultures are negative/per GI recommendations Appreciate GI input Received IV fluids Plan for outpatient colonoscopy scheduled in May with stool studies: Negative Hypertension BP Stable Continue lisinopril Monitor Hyperlipidemia No on statin at home DM II: Last A1c:6.2 in March 2019 Hold oral meds Continue insulin therapy while hospitalized CKD III creatinine at baseline Monitor renal function Avoid nephrotoxic agents as able Dehydration: Received IV Fluids DVT Px: Heparin SQ Code Status Full code Disposition: Expect to discharge home when stable Total Time Total Time Spent Total Time Spent (In Minutes): 39 minutes Total Time Includes: Examination of the Patient, Discharge Planning, Medication Reconciliation, Communication With Other Providers and Other Discharge Plan Discharge Items Patient Disposition: Home - Self-Care Reason For Visit: SEPSIS Discharge Diagnosis: Dehydration Possible Colitis Discharge Goals: Decrease discomfort, Improve disease control and Improve function Activity: Resume your previous activity Exercise/Sports: Gradually increase as tolerated Non-emergency contact: Primary Care Provider and [employer] Spot Picker Call non-emergency contact if: you have any medication questions, your symptoms worsen, your pain is not controlled, your pain is worsening, your pain is unusual for you, your pain is concerning for you and you have a fever Follow-up/Referrals: Namrata Rolon PA-C [Primary Care Provider] - Diet: Carb Consistent or DM2 and Heart Healthy Addtl Provider Instructions: Follow-up with your primary care physician Namrata Rolon PA-C on May 11, 2019 at 11:05 AM Follow-up with your neurology technologist Dr. Ramirez for colonoscopy as scheduled Seek immediate medical attention if your symptoms reoccur or worsen Prescriptions: Continued metformin 500 mg Tablet 500 mg PO BID RF: 0 lisinopril 20 mg Tablet 20 mg PO DAILY RF: 0 cinnamon bark [Cinnamon] 500 mg Capsule 500 mg PO BID RF: 0 omeprazole 20 mg Tablet,Delayed Release (Dr/Ec) 20 mg PO BID RF: 0 Stand-Alone Forms: [facility] Discharge Orders: Discharge Order (Routine); Ordered 05/05/19 Ordered By: Octavio Murdock Admission Data Admit Date/Time: 05/03/19 23:51 Attending Provider: Octavio Murdock Admit Provider: Tristan Hernandez Primary Care Provider: Namrata Rolon Other Providers: Tristan Hernandez ; Son Ramirez Service: Medical Other Interventions: Discharge Summary Assessment (RN) Last Done: 05/05/19 13:07 DC Date/Time DO NOT enter until pt leaves facility: 05/05/19 14:45
--- NOTE | 2019-05-07 08:24 | Coding Query ---
SEPSIS To promote full compliance with coding requirements relating to patient care, physician participation is requested in all cases of immigration coordinator uncertainty. Please assist us with the question(s) below: In responding to this query, please exercise your independent professional judgement. The fact that a question is asked does not imply that any particular answer is desired or expected. We appreciate your clarification on this issue. Throughout the medical record, you have clearly documented a localized infection and your patient has clinical evidence of a generalized sepsis or severe sepsis. The term urosepsis is a nonspecific entity and is coded as an UTI. If the patient has sepsis, severe sepsis, from an urinary source or some other source, please clarify in your response below. The medical record reflects the following clinical findings: Patient admitted with fever,nausea, dizziness, ileitis and tachycardia. Please check below the diagnosis you treated if relevant. Thanks for your help! [facility] GuzmánSET [facility] ____ ( )Bacteremia (Nonspecific laboratory finding of bacteria in the blood) Specify Organism ( ) Present on Admission ( X) Not present on admission ( ) Unable to clinically determine ( ) Septicemia (Systemic disease associated with the presence of pathogenic microorganisms in the blood): Specify Organism ( ) Present on Admission (X ) Not present on admission ( ) Unable to clinically determine ( ) Sepsis Specify Organism Specify Associated Condition/Diagnosis ( ) Present on Admission ( ) Not present on admission ( X) Unable to clinically determine ( ) Severe Sepsis (Sepsis associated with acute organ dysfunction) Specify Organism Specify Associated Condition/Diagnosis ( ) Present on Admission ( X) Not present on admission ( ) Unable to clinically determine ( ) Septic Shock (Severe sepsis with acute circulatory failure, unexplained by other causes) ( ) Present on Admission ( X) Not present on admission ( ) Unable to clinically determine ( ) Other, patient has: MTDD
== END 2019-05-05 14:45 | disposition home or self-care (01) | DRG 392 ==
LOC: ED 20:33 → 4W 23:51